=== PATIENT | female | born 1985 | race Caucasian/White ===

== ENCOUNTER 2019-06-18 07:59 | Day surgery (SDC) | payer OTHER ==
[~2019-06-18] VITALS: Ht 160 cm; Wt 77.8 kg
[~2019-06-18 07:59] MED LIST: ABAT250V; ABILIFY5 MG PO; ACET325 PO; ALBU90OI INH; ALBU90OI6 INH; ALBU90OI61 INH; AZIT250 PO; Augmentin 875-1 EACH PO; BENZ100A PO; BUDE6HFA INH; CEFU500 PO; CIPR500 PO; CLARITIN10 M1 PO; CLARITIN5 MG PO; Cleocin HCl150 MG PO; Cleocin HCl300 MG PO; DAYQUIL PO; DIPATR PO; DIPH50 PO; DOXY100 PO; FLUSAL2505 INH; Fluoxetine HCl10 MG PO; HYDACE5 PO; HYDCHLSU PO; IBUP800 PO; INTE30I SC; Keflex500 MG PO; LAMO100 PO; LORA10ER PO; MECL12.5 PO; METPRE4DP PO; MONT10T PO; MULVITMINE PO; Naprosyn500 MG PO; Norco 5-325 Ta1 EACH PO; PENVK250 PO; PRED20 PO; PROCODE120 PO; PROM25 PO; RXALBOI INH; RXCODGUASY PO; Ultram50 MG PO; Veetids 500500 MG PO; Ventolin Soln3 ML INH; Ventolin/Prove6.7 GM; ZOLP10 PO; Zithromax250 MG PO; Zofran4 MG PO
--- NOTE | 2019-06-18 09:23 | NUR ---
06/18/19 0923 Rosemarie Howard PT FOUGHT AND KEPT WAKING UP DURING THE PROCEDURE DESPITE 300MG IV PROPOFOL AND 3MG IV VERSED. PT NEEDS TO BE MAC NEXT TIME DUE TO DIFFICULTY WITH SEDATING PER MD ESPINAL.
== END 2019-06-18 09:44 | disposition home or self-care (01) ==
LOC: ORSCSDS 07:59
PROVIDERS: Student in an Organized Health Care Education/Training Program
PROC: 0DB68ZX Excision of Stomach, Via Natural or Artificial Opening Endoscopic, Diagnostic (ICD-10-PCS; principal; 2019-06-18 09:00)
PROC: 0DB98ZX Excision of Duodenum, Via Natural or Artificial Opening Endoscopic, Diagnostic (ICD-10-PCS; principal; 2019-06-18 09:00)
DX: K21.9 Gastro-esophageal reflux disease without esophagitis (principal); R13.10 Dysphagia, unspecified; K29.70 Gastritis, unspecified, without bleeding; K22.2 Esophageal obstruction; Z87.891 Personal history of nicotine dependence; J45.909 Unspecified asthma, uncomplicated; Z79.899 Other long term (current) drug therapy
CPT/HCPCS: 88305; 88342; J2250; J2704; J7120

== ENCOUNTER → 2019-08-13 | Outpatient (CLI) | payer OTHER | END | disposition home or self-care (01) | LOC: LAB 15:20 → LAB SHORT 15:20 | DX: N39.0 Urinary tract infection, site not specified (principal) | CPT/HCPCS: 87077; 87086; 87186 ==

== ENCOUNTER 2019-11-19 08:11 | Day surgery (SDC) | payer OTHER ==
[~2019-11-19] VITALS: Ht 160 cm; Wt 77.9 kg
[~2019-11-19 08:11] MED LIST changes: +ABILIFY MYCITE5 M1 PO; +ALBU3IS INH; +BENADRYL25 MG; +FLUO10 PO; +Loratadine10 MG PO; +MOTRIN IB200 MG PO; +OMEP20ER PO; +ONDA4ODT MM
== END 2019-11-19 10:05 | disposition home or self-care (01) ==
LOC: ORSCSDS 08:11
PROVIDERS: Student in an Organized Health Care Education/Training Program
PROC: 0DB68ZX Excision of Stomach, Via Natural or Artificial Opening Endoscopic, Diagnostic (ICD-10-PCS; principal; 2019-11-19 09:15)
PROC: 0DB48ZX Excision of Esophagogastric Junction, Via Natural or Artificial Opening Endoscopic, Diagnostic (ICD-10-PCS; principal; 2019-11-19 09:15)
DX: K21.9 Gastro-esophageal reflux disease without esophagitis (principal); R13.10 Dysphagia, unspecified; K29.70 Gastritis, unspecified, without bleeding; K22.2 Esophageal obstruction; J45.909 Unspecified asthma, uncomplicated; Z79.899 Other long term (current) drug therapy
CPT/HCPCS: 88305; 88342; J2704; J7120

== ENCOUNTER → 2021-05-17 | Outpatient (CLI) | payer OTHER | END | disposition home or self-care (01) | LOC: LAB SHORT 15:20 → LAB 15:20 | DX: L02.01 Cutaneous abscess of face (principal) | CPT/HCPCS: 87070; 87075; 87077; 87186; 87205 ==

== ENCOUNTER 2022-06-07 18:42 | Emergency (ER) | payer OTHER ==
[~2022-06-07] VITALS: Ht 160 cm; Wt 81.7 kg
[2022-06-07 19:09] LABS: BASOPHILS ABSOLUTE AUTO 0.13 K/mm3 (0.00-0.23); BASOPHILS PERCENT AUTO 1 % (0-2); EOSINOPHILS ABSOLUTE AUTO 0.56 K/mm3 (0.00-0.68); EOSINOPHILS PERCENT AUTO 3 % (0-6); Hematocrit 35.1 % (33.0-51.0); Hemoglobin 13.1 g/dL (11.5-16.0); IMMATURE GRAN ABSOLUTE AUTO 0.84 K/mm3 (0.00-0.10); IMMATURE GRAN PERCENT AUTO 4 % (0-1); LYMPHOCYTES ABSOLUTE AUTO 3.42 K/mm3 (0.84-5.20); LYMPHOCYTES PERCENT AUTO 18 % (21-46); MONOCYTES PERCENT AUTO 8 % (4-13); Mean Corpuscular HGB 30.8 pg (26.0-34.0); Mean Corpuscular HGB Conc 37.3 g/dL (31.5-36.5); Mean Corpuscular Volume 82 fL (80-100); Mean Platelet Volume 10.3 fL (9.1-12.4); NEUTROPHILS PERCENT AUTO 67 % (41-73); Platelet Count 362 K/mm3 (150-400); RDW Coefficient Variation 14.6 % (11.7-14.2); RDW Standard Deviation 43.8 fL (35.1-46.3); Red Blood Cell Count 4.26 M/mm3 (3.80-5.20); White Blood Cell Count 19.45 K/mm3 (4.00-11.30)
[2022-06-07 19:48] LABS: Influenza A, PCR NEGATIVE (NEGATIVE); Influenza B, PCR NEGATIVE (NEGATIVE); Resp Syncytial Virus, PCR NEGATIVE (NEGATIVE); SARS-Cov-2 (COVID-19) PCR, MMC NEGATIVE (NEGATIVE)
[2022-06-07 19:51] LABS: Albumin, Blood 2.9 g/dL (3.4-5.0); Albumin/Globulin Ratio 0.6 (0.8-1.8); Bilirubin, Total 1.1 mg/dL (0.1-1.0); Creatinine, Blood 0.29 mg/dL (0.40-1.00); Globulin, Blood 5.2 g/dL (2.2-4.0); Potassium, Blood 4.9 mmol/L (3.5-5.5); Total Protein, Blood 8.1 g/dL (6.4-8.2)
[2022-06-08] MEDS ORDERED: DOXY100 PO (02:12)
[2022-06-08] MEDS ORDERED: AMOCLA875 PO (02:12)
== END 2022-06-08 02:30 | disposition home or self-care (01) ==
LOC: ER 18:42
PROVIDERS: Student in an Organized Health Care Education/Training Program
DX: J18.9 Pneumonia, unspecified organism (principal); R00.0 Tachycardia, unspecified; K76.0 Fatty (change of) liver, not elsewhere classified; J47.9 Bronchiectasis, uncomplicated; J45.909 Unspecified asthma, uncomplicated; Z20.822 Contact with and (suspected) exposure to COVID-19; Z88.8 Allergy status to other drugs, medicaments and biological substances; Z88.1 Allergy status to other antibiotic agents; Z88.2 Allergy status to sulfonamides; Z79.899 Other long term (current) drug therapy; Z87.891 Personal history of nicotine dependence
CPT/HCPCS: 0241U; 36415; 71046; 71260; 80053; 83690; 84484; 85025; 93005; 93010; A9270; J1885; J2930; J7030; Q9967

== ENCOUNTER 2022-10-01 15:59 | Inpatient (IN) | payer OTHER ==
[~2022-10-01] VITALS: Ht 160 cm; Wt 94.2 kg
[~2022-10-01 15:59] MED LIST changes: +AMOCLA875 PO
[2022-10-01 17:03] LABS: BASOPHILS PERCENT AUTO 1 % (0-2); EOSINOPHILS ABSOLUTE AUTO 0.43 K/mm3 (0.00-0.68); EOSINOPHILS PERCENT AUTO 2 % (0-6); Hematocrit 39.1 % (33.0-51.0); Hemoglobin 14.2 g/dL (11.5-16.0); IMMATURE GRAN ABSOLUTE AUTO 0.19 K/mm3 (0.00-0.10); IMMATURE GRAN PERCENT AUTO 1 % (0-1); LYMPHOCYTES ABSOLUTE AUTO 2.05 K/mm3 (0.84-5.20); LYMPHOCYTES PERCENT AUTO 11 % (21-46); MONOCYTES ABSOLUTE AUTO 1.35 K/mm3 (0.16-1.47); MONOCYTES PERCENT AUTO 7 % (4-13); Mean Corpuscular HGB Conc 36.3 g/dL (31.5-36.5); Mean Corpuscular Volume 83 fL (80-100); Mean Platelet Volume 9.7 fL (9.1-12.4); NEUTROPHILS ABSOLUTE AUTO 14.26 K/mm3 (1.96-9.15); NEUTROPHILS PERCENT AUTO 78 % (41-73); Platelet Count 329 K/mm3 (150-400); RDW Coefficient Variation 15.4 % (11.7-14.2); RDW Standard Deviation 46.3 fL (35.1-46.3); Red Blood Cell Count 4.74 M/mm3 (3.80-5.20); White Blood Cell Count 18.38 K/mm3 (4.00-11.30)
[2022-10-01 18:35] LABS: Source, Urine Clean Catch
[2022-10-01 18:41] LABS: Appearance, Urine Bloody (Clear); Bilirubin, Urine Neg (Neg); Blood, Urine 5+ (Neg); Color, Urine Red (P-Yellow); Glucose Qualitative, Urine Neg (Neg); Ketones, Urine Neg (Neg); Leukocyte Esterase, Urine 2+ (Neg); Nitrite, Urine Pos (Neg); Protein, Urine 3+ (Neg); Urobilinogen, Urine 1+ (Normal)
[2022-10-01 19:10] LABS: Bacteria Mod /hpf; Granular Casts 0-2 /lpf (0); Hyaline Casts 0-2 /lpf (0-2); RBC Cast 0-2 /lpf (0); Red Blood Cells, Urine TNTC /hpf (0-2); Squamous Epithelial Cells Few /hpf (Few); White Blood Cells, Urine 25-50 /hpf (0-5)
[2022-10-01 19:15] LABS: Alanine Aminotransfer (ALT/SGP 41 U/L (12-78); Albumin, Blood 3.6 g/dL (3.4-5.0); Albumin/Globulin Ratio 0.8 (0.8-1.8); Alk Phos 57 U/L (50-136); Anion Gap 3 mmol/L (6-16); Aspartate Aminotrans (AST/SGOT 82 U/L (12-37); Bilirubin, Total 0.5 mg/dL (0.1-1.0); Blood Urea Nitrogen 10 mg/dL (8-24); Bun/Creatinine Ratio 14.1 (12.0-20.0); CO2, Blood 26 mmol/L (21-32); Calcium, Blood 8.6 mg/dL (8.5-10.1); Chloride, Blood 109 mmol/L (98-108); Creatinine, Blood 0.71 mg/dL (0.40-1.00); Globulin, Blood 4.8 g/dL (2.2-4.0); Glomerular Filtration Rate 113 (60-); Glucose, Blood 118 mg/dL (70-99); Potassium, Blood 5.2 mmol/L (3.5-5.5); Sodium, Blood 138 mmol/L (136-145); Total Protein, Blood 8.4 g/dL (6.4-8.2)
[2022-10-01 23:05] LABS: Lactate Dehydrogenase (Ld),Bld 837 U/L (100-240); Triglycerides 584 mg/dL (30-140)
[2022-10-02 00:57] LABS: BASOPHILS ABSOLUTE AUTO 0.08 K/mm3 (0.00-0.23); BASOPHILS PERCENT AUTO 1 % (0-2); EOSINOPHILS ABSOLUTE AUTO 0.05 K/mm3 (0.00-0.68); EOSINOPHILS PERCENT AUTO 0 % (0-6); Hematocrit 35.6 % (33.0-51.0); Hemoglobin 12.4 g/dL (11.5-16.0); IMMATURE GRAN ABSOLUTE AUTO 0.12 K/mm3 (0.00-0.10); IMMATURE GRAN PERCENT AUTO 1 % (0-1); LYMPHOCYTES ABSOLUTE AUTO 1.04 K/mm3 (0.84-5.20); LYMPHOCYTES PERCENT AUTO 6 % (21-46); MONOCYTES ABSOLUTE AUTO 1.27 K/mm3 (0.16-1.47); MONOCYTES PERCENT AUTO 7 % (4-13); Mean Corpuscular HGB 28.8 pg (26.0-34.0); Mean Corpuscular HGB Conc 34.8 g/dL (31.5-36.5); Mean Corpuscular Volume 83 fL (80-100); Mean Platelet Volume 10.3 fL (9.1-12.4); NEUTROPHILS ABSOLUTE AUTO 15.14 K/mm3 (1.96-9.15); NEUTROPHILS PERCENT AUTO 85 % (41-73); Platelet Count 252 K/mm3 (150-400); RDW Coefficient Variation 15.3 % (11.7-14.2); RDW Standard Deviation 46.1 fL (35.1-46.3); Red Blood Cell Count 4.31 M/mm3 (3.80-5.20)
--- NOTE | 2022-10-02 01:51 | NUR ---
ARRIVAL TO [facility] PT ARRIVED TO [facility] AT APPROXIMATELY 0020. PT TRANSFERED FROM [facility] TO HOSPITAL BED WITH SBA. PT A&Ox4, COMMUNICATES NEEDS APPROPRIATELY. ORIENTED PT TO CALL LIGHT/UNIT. PT ARRIVED ON 2L VIA NC, SpO2> 92% RA. WHEN PT FELL ASLEEP WHILE ON SpO2 MONIORING, PT DESATURATED TO 87%, PLACED PT ON 2L VEGA NC, SpO2> 92%. PT DENIES SOB. BP STABLE, SINUS TACH 100's, DENIES CP/PRESSURE. PT WITH NAUSEA AND ABDOMINAL PAIN AT ARRIVAL, MANAGED PER EMAR. BED IN LOWEST POSITION, CALL LIGHT IN REACH.
[2022-10-02 02:21] LABS: Albumin, Blood 3.2 g/dL (3.4-5.0); Albumin/Globulin Ratio 0.8 (0.8-1.8); Bilirubin, Total 0.6 mg/dL (0.1-1.0); Bun/Creatinine Ratio 16.1 (12.0-20.0); Calcium, Blood 7.3 mg/dL (8.5-10.1); Creatinine, Blood 0.68 mg/dL (0.40-1.00); Globulin, Blood 4.1 g/dL (2.2-4.0); Potassium, Blood 4.9 mmol/L (3.5-5.5); Total Protein, Blood 7.3 g/dL (6.4-8.2)
--- NOTE | 2022-10-02 05:56 | NUR ---
SHIFT SUMMARY PT A&Ox4, COMMUNICATES NEEDS APPROPRIATELY. VSS, SpO2> 92% RA, WHEN PT IS SLEEPING DESATS TO 80's, PLACED PT ON 2L VEGA NC, SpO2> 92%. PT DENIES SOB. BP STABLE, SINUS TACH 100's, DENIES CP/PRESSURE. PT WITH NAUSEA AND ABDOMINAL PAIN, MANAGED PER EMAR. PT CONTINENT OF URINE, SBA TO BATHROOM, NO BM THIS SHIFT. PT NPO. NO OTHER EVENTS, WILL REPORT TO ONCOMING RN.
[2022-10-02 12:24] LABS: Bun/Creatinine Ratio 14.2 (12.0-20.0); Calcium, Blood 6.1 mg/dL (8.5-10.1); Creatinine, Blood 0.84 mg/dL (0.40-1.00); Potassium, Blood 3.7 mmol/L (3.5-5.5)
[2022-10-02 14:21] LABS: Magnesium, Blood 1.8 mg/dL (1.6-2.4); Phosphorus, Blood 1.9 mg/dL (2.5-4.9)
[2022-10-02 14:31] LABS: Free Thyroxine 0.97 ng/dL (0.70-1.60); Thyroid Stimulating Hormone 0.299 uIU/mL (0.360-4.800); Triiodothyronine, Free 2.91 pg/mL (2.18-3.98)
[2022-10-02 14:39] LABS: Triglycerides 1515 mg/dL (30-140)
--- NOTE | 2022-10-02 15:07 | NUR ---
Upon receiving a spiritual care referral, I attempted to visit twice today. She was either sleeping or not in a state to talk. I will continue to remain available to patient and family.
--- NOTE | 2022-10-02 15:19 | NUR ---
TRANSFER NOTE PATIENT LETHARGIC THROUGH AM BUT ABLE TO RESPOND TO VERBAL STIMULI AND FOLLOW DIRECTIONS. TACHY 120-130, ELEVATED TEMP MANAGED WITH TYLENOL AND ICE PACKS, BP STABLE, O2 STABLE ON 2L VIA NC. SEVERE LEFT SIDE ABD PAIN MANAGED WITH PRN DILAUDID. NAUSEA WITH EMESIS ONCE, MEDICATED WITH ZOPHRAN. SBA UP TO BSC, LOW URINE OUTPUT 300 ML SINCE 0600. NPO EXCEPT FOR SIPS OF WATER WITH PILLS. LR RUNNING AT 150/HR. NUMEROUS LABS CHECKED BY JOSE ALBERTO CABRAL AND SANDRA, CONCERNED WITH RISING TRG, DROPPING CALCIUM, AND REPORT FROM LAB THAT LACTIC ACID COULD NOT BE RUN DUE TO LIPEMIC NATURE OF BLOOD SAMPLE. DR CABRAL PLACED ORDER FOR TRANSFER TO ICU FOR CLOSE MANAGEMENT BY CLAIMS ASSOCIATE DR ROBERTS AND FOR POSSIBLE START IF INSULIN GTT. REPORT CALLED TO JUAN JOSE PRICE, CHEMISTRY TECHNICAL OFFICER AT 1500. PATIENT TRANSPORTED TO ICU ROOM 11 ON BED AT 1515.
[2022-10-02 17:49] LABS: Source, Urine Foley catheter
[2022-10-02 18:04] LABS: Appearance, Urine Clear (Clear); Bilirubin, Urine Neg (Neg); Blood, Urine 2+ (Neg); Color, Urine Amber (P-Yellow); Glucose Qualitative, Urine Neg (Neg); Ketones, Urine 2+ (Neg); Leukocyte Esterase, Urine Neg (Neg); Nitrite, Urine Neg (Neg); Protein, Urine 2+ (Neg); Specific Gravity, Urine 1.025 (1.003-1.022); Urobilinogen, Urine NORM (Normal)
[2022-10-02 18:19] LABS: White Blood Cells, Urine 0-2 /hpf (0-5)
[2022-10-02 18:21] LABS: Bacteria Few /hpf; Mucus Light (0-Heavy); Squamous Epithelial Cells Few /hpf (Few)
[2022-10-02 18:22] LABS: Amorphous Light (0-Heavy)
--- NOTE | 2022-10-02 18:36 | NUR ---
TRANSFER TO ICU / SHIFT SUMMARY: REPORT RECEIVED FROM MAYCO Sutherland RN IN PCU. THIS PT ARRIVED TO ICU-11 AT APPROX 1510. SHE HAS BEEN TRANSFERRED R/T WORSENING PANCREATITIS & INCREASING TRIGLYCERIDES W/ ELECTROLYTE IMBALANCE. SHE WILL BE PLACED ON CONTINUOUS D10W & INSULIN INFUSIONS. ON ARRIVAL TO ICU, THE PT IS A&O TO ALL, GRIMACING W/ CARE MEASURES/ ADLs. SHE STS THAT PAIN IS RADIATING FROM EPIGASTRIC REGION DOWN TO LEFT FLANK & INTO HER UPPER BACK, IMPROVED AT REST. LS ARE WHEEZING & PT IS ON 2L NC W/ O2 SATS > 92%. MONITOR SHOWS ST W/ HR 100-120s, BP STABLE. PT NPO AT THIS TIME R/T PANCREATITIS DX, OKAY'd PER DR ROBERTS FOR SIPS OF WATER LONG NO NAUSEA OR VOMITING DEVELOPS. RISHABH LOERA PLACED THIS EVENING FOR STRICT I&O MONITORING PER DR ROBERTS. SKIN CONDITION OVERALL INTACT, Q2H REPOSITIONING TO MAINTAIN SKIN INTEGRITY. WILL CONTINUE TO MONITOR & REPORT OFF TO ONCOMING RN.
--- NOTE | 2022-10-02 20:26 | NUR ---
DOCTOR ARMANDO NOTIFIED OF GLUCOSE LEVEL DROPPING AND CALCIUM LEVEL. KEEP INSULIN DRIP AT 5 UNITS/HR AND D10 150 CC/HR. GIVE D50 NEEDED FOR GLUCOSE LESS THAN 80
[2022-10-02 20:30] LABS: Hematocrit 39.5 % (33.0-51.0); Hemoglobin 12.3 g/dL (11.5-16.0)
[2022-10-02 20:46] LABS: Magnesium, Blood 1.9 mg/dL (1.6-2.4); Phosphorus, Blood 2.4 mg/dL (2.5-4.9)
[2022-10-02 22:45] LABS: Anion Gap 10 mmol/L (6-16); Blood Urea Nitrogen 12 mg/dL (8-24); Bun/Creatinine Ratio 15.8 (12.0-20.0); CO2, Blood 19 mmol/L (21-32); Calcium, Blood 7.6 mg/dL (8.5-10.1); Chloride, Blood 110 mmol/L (98-108); Creatinine, Blood 0.76 mg/dL (0.40-1.00); Glomerular Filtration Rate 104 (60-); Glucose, Blood 81 mg/dL (70-99); Potassium, Blood 3.6 mmol/L (3.5-5.5); Sodium, Blood 139 mmol/L (136-145); Triglycerides 905 mg/dL (30-140)
--- NOTE | 2022-10-02 22:51 | NUR ---
DOCTOR ARMANDO NOTIFIED OF LABS PLAN TO CONTINUE WITH CURRENT TREATMENT.
[2022-10-03 05:02] LABS: BASOPHILS ABSOLUTE AUTO 0.06 K/mm3 (0.00-0.23); BASOPHILS PERCENT AUTO 0 % (0-2); EOSINOPHILS ABSOLUTE AUTO 0.02 K/mm3 (0.00-0.68); EOSINOPHILS PERCENT AUTO 0 % (0-6); Hematocrit 33.5 % (33.0-51.0); Hemoglobin 10.9 g/dL (11.5-16.0); IMMATURE GRAN ABSOLUTE AUTO 0.14 K/mm3 (0.00-0.10); IMMATURE GRAN PERCENT AUTO 1 % (0-1); LYMPHOCYTES ABSOLUTE AUTO 1.31 K/mm3 (0.84-5.20); LYMPHOCYTES PERCENT AUTO 7 % (21-46); MONOCYTES ABSOLUTE AUTO 1.13 K/mm3 (0.16-1.47); MONOCYTES PERCENT AUTO 6 % (4-13); Mean Corpuscular HGB 27.3 pg (26.0-34.0); Mean Corpuscular HGB Conc 32.5 g/dL (31.5-36.5); Mean Corpuscular Volume 84 fL (80-100); Mean Platelet Volume 10.6 fL (9.1-12.4); NEUTROPHILS ABSOLUTE AUTO 15.47 K/mm3 (1.96-9.15); NEUTROPHILS PERCENT AUTO 85 % (41-73); Platelet Count 211 K/mm3 (150-400); RDW Coefficient Variation 15.4 % (11.7-14.2); RDW Standard Deviation 47.2 fL (35.1-46.3); Red Blood Cell Count 3.99 M/mm3 (3.80-5.20); White Blood Cell Count 18.13 K/mm3 (4.00-11.30)
[2022-10-03 05:28] LABS: Alanine Aminotransfer (ALT/SGP 18 U/L (12-78); Albumin, Blood 2.2 g/dL (3.4-5.0); Albumin/Globulin Ratio 0.6 (0.8-1.8); Alk Phos 41 U/L (50-136); Anion Gap 4 mmol/L (6-16); Aspartate Aminotrans (AST/SGOT 20 U/L (12-37); Bilirubin, Total 0.8 mg/dL (0.1-1.0); Blood Urea Nitrogen 11 mg/dL (8-24); Bun/Creatinine Ratio 16.4 (12.0-20.0); CO2, Blood 25 mmol/L (21-32); Calcium, Blood 7.2 mg/dL (8.5-10.1); Chloride, Blood 105 mmol/L (98-108); Creatinine, Blood 0.67 mg/dL (0.40-1.00); Globulin, Blood 3.7 g/dL (2.2-4.0); Glomerular Filtration Rate 116 (60-); Glucose, Blood 126 mg/dL (70-99); Potassium, Blood 3.4 mmol/L (3.5-5.5); Sodium, Blood 134 mmol/L (136-145); Total Protein, Blood 5.9 g/dL (6.4-8.2); Triglycerides 714 mg/dL (30-140)
--- NOTE | 2022-10-03 06:09 | NUR ---
SUMMARY PATIENT SLEEPING OFF AND ON T/O NIGHT. CONTINUES TO HAVE ABD CRAMPS AND PAIN 12/15 MEDICATED WITH DILAUDID IV. GENERALIZED EDEMA CONTINUES. LOERA DRAINING WICHO URINE SEE I&O. DOCTOR ARMANDO NOTIFIED OF AM LABS, CONTINUE SAME TREATMENT WITH INSULIN 5 UNITS/HR AND D10 @ 150/HR.
--- NOTE | 2022-10-03 13:23 | NUR ---
"Spiritual Care Attempted | Nurse referral. Pt. had been moved to ICU, and displayed evidence of being groggy with sedation. Pts. mother and Pts. daughter are present. Cordial introductions were given. Pt. and family verbalize gratitude for the spiritual care visit, but decline spiritual care servicest this time."
[2022-10-03 14:39] LABS: Bun/Creatinine Ratio 10.9 (12.0-20.0); Calcium, Blood 7.7 mg/dL (8.5-10.1); Creatinine, Blood 0.64 mg/dL (0.40-1.00); Potassium, Blood 3.3 mmol/L (3.5-5.5)
--- NOTE | 2022-10-03 17:58 | NUR ---
SHIFT SUMMARY NO ACUTE CHANGES THIS SHIFT. PT IS ALERT AND ORIENTED WHEN AWAKE. PT RESTING QUIETLY MOST OF THIS SHIFT. WHEN AWAKE PT COMPLAINS OF PAIN TO BACK AND ABD WITH MOVEMENT. PT MED WITH DILAUDID PER EMAR. PT ABLE TO TAKE SMALL SIPS OF WATER. ABD REMAINS DISTENDED. D10 INFUSING AT 150 ML/HR, INSULIN GTT 5 UNITS/HR, AND NS TKO. LOERA REMAINS IN PLACE WITH GOOD URINE OUTPUT NOTED THIS SHIFT. PT ABLE TO ASSIST WITH REPOSITIONING. VITAL SIGNS STABLE. PT ON 2L O2 NC. WILL CONTINUE TO MONITOR AND REPORT OFF TO ONCOMING RN.
[2022-10-04 05:09] LABS: BASOPHILS ABSOLUTE AUTO 0.06 K/mm3 (0.00-0.23); BASOPHILS PERCENT AUTO 0 % (0-2); EOSINOPHILS ABSOLUTE AUTO 0.02 K/mm3 (0.00-0.68); EOSINOPHILS PERCENT AUTO 0 % (0-6); Hematocrit 32.6 % (33.0-51.0); Hemoglobin 10.2 g/dL (11.5-16.0); IMMATURE GRAN ABSOLUTE AUTO 0.24 K/mm3 (0.00-0.10); IMMATURE GRAN PERCENT AUTO 1 % (0-1); LYMPHOCYTES PERCENT AUTO 8 % (21-46); MONOCYTES ABSOLUTE AUTO 1.28 K/mm3 (0.16-1.47); MONOCYTES PERCENT AUTO 6 % (4-13); Mean Corpuscular HGB 26.4 pg (26.0-34.0); Mean Corpuscular HGB Conc 31.3 g/dL (31.5-36.5); Mean Corpuscular Volume 84 fL (80-100); Mean Platelet Volume 10.5 fL (9.1-12.4); NEUTROPHILS ABSOLUTE AUTO 16.85 K/mm3 (1.96-9.15); NEUTROPHILS PERCENT AUTO 85 % (41-73); Platelet Count 211 K/mm3 (150-400); RDW Coefficient Variation 15.3 % (11.7-14.2); RDW Standard Deviation 47.1 fL (35.1-46.3); Red Blood Cell Count 3.87 M/mm3 (3.80-5.20); White Blood Cell Count 19.95 K/mm3 (4.00-11.30)
[2022-10-04 05:45] LABS: Anion Gap 4 mmol/L (6-16); Blood Urea Nitrogen 5 mg/dL (8-24); Bun/Creatinine Ratio 8.5 (12.0-20.0); CO2, Blood 26 mmol/L (21-32); Calcium, Blood 7.6 mg/dL (8.5-10.1); Chloride, Blood 104 mmol/L (98-108); Creatinine, Blood 0.59 mg/dL (0.40-1.00); Glomerular Filtration Rate 120 (60-); Glucose, Blood 153 mg/dL (70-99); Potassium, Blood 3.7 mmol/L (3.5-5.5); Sodium, Blood 134 mmol/L (136-145); Triglycerides 445 mg/dL (30-140)
--- NOTE | 2022-10-04 06:13 | NUR ---
SHIFT SUMMARY: NO ACUTE CHANGES OVERNIGHT. PT REMAINS A&O X 4, WITHDRAWN BUT PLEASANT AND COOPERATIVE WITH CARE. C/O OF INTENSE PAIN IN LUQ THAT RADIATES TO THE BACK THAT IS 7/10; PT MEDICATED PER EMAR AND REPOSITIONED TOLERATED. PT CURENTLY ST ON MONITOR WITH HR 110'S AND SBP 100'S. PT HAS NO C/O CHEST PAIN. PT CURRENTLY ON NC @ 2LPM; LUNG SOUNDS ARE CLEAR WITH EXPIRATORY WHEEZES, BUT PT NOT C/O SOB AT THIS TIME. BOWEL SOUNDS PRESENT IN ALL QUADRANTS; ABD MODERATELY DISTENDED AND EXTREMELY TENDER TO TOUCH. PT HAS LOERA DRAINING TO GRAVITY WITH YELLOW, CLEAR URINE; 2400 ML OUTPUT. PT REMAINS ON INSULIN GTT @ 5 UNITS/HR AND D10 GTT @ 150 MLS/HR; CBG READINGS AVERAGING 120-140. CALL LIGHT IN REACH, BED LOWERED, WILL CONTINUE TO MONITOR UNTIL ONCOMING RN ARRIVES.
--- NOTE | 2022-10-04 18:30 | NUR ---
TRANSFER/ END OF SHIFT NOTE. PT WAS TRANSFERED FROM THE ICU INTO PCU3. PT WAS ABLE TO SIT AT THE EDGE OF THE BED HAD HAVE A MODIFIED BED BATH AT THAT TIME. PT TOLERATED MOVEMENT FAIR, CAUSING SOME NAUSEA AND INCREASE HR TO 130s. LOERA WAS REMOVED AT 1630. MD WAS PHONED TO CLARIFY CBG ORDERS TO BE DC'D. PT WAS ALSO NOTIFIED OF HR INCREASE WITH MOVEMENT. AT REST PT 110-120. ALL OTHER VITALS STABLE. PT HAS BEEN MEDICATED FOR PAIN AND NAUSEA ONCE SINCE TRANSFER. PTS MOM WAS UPDATED VIA PHONE. PT WAS ORIENTED TO ROOM AND CALL LIGHT SYSTEM. PT IS ABLE TO MAKE NEEDS KNOWN, CALL LIGHT IS WITHIN REACH.
[2022-10-05 03:32] LABS: BASOPHILS ABSOLUTE AUTO 0.04 K/mm3 (0.00-0.23); BASOPHILS PERCENT AUTO 0 % (0-2); EOSINOPHILS ABSOLUTE AUTO 0.03 K/mm3 (0.00-0.68); EOSINOPHILS PERCENT AUTO 0 % (0-6); Hematocrit 30.7 % (33.0-51.0); Hemoglobin 9.9 g/dL (11.5-16.0); IMMATURE GRAN ABSOLUTE AUTO 0.23 K/mm3 (0.00-0.10); IMMATURE GRAN PERCENT AUTO 1 % (0-1); LYMPHOCYTES ABSOLUTE AUTO 1.19 K/mm3 (0.84-5.20); LYMPHOCYTES PERCENT AUTO 7 % (21-46); MONOCYTES ABSOLUTE AUTO 1.35 K/mm3 (0.16-1.47); MONOCYTES PERCENT AUTO 8 % (4-13); Mean Corpuscular HGB 27.1 pg (26.0-34.0); Mean Corpuscular HGB Conc 32.2 g/dL (31.5-36.5); Mean Corpuscular Volume 84 fL (80-100); Mean Platelet Volume 9.9 fL (9.1-12.4); NEUTROPHILS ABSOLUTE AUTO 14.37 K/mm3 (1.96-9.15); NEUTROPHILS PERCENT AUTO 84 % (41-73); Platelet Count 227 K/mm3 (150-400); RDW Coefficient Variation 15.4 % (11.7-14.2); RDW Standard Deviation 47.3 fL (35.1-46.3); Red Blood Cell Count 3.65 M/mm3 (3.80-5.20); White Blood Cell Count 17.21 K/mm3 (4.00-11.30)
[2022-10-05 03:51] LABS: Anion Gap 6 mmol/L (6-16); Blood Urea Nitrogen 9 mg/dL (8-24); Bun/Creatinine Ratio 16.3 (12.0-20.0); CO2, Blood 26 mmol/L (21-32); Calcium, Blood 8.2 mg/dL (8.5-10.1); Chloride, Blood 105 mmol/L (98-108); Creatinine, Blood 0.55 mg/dL (0.40-1.00); Glomerular Filtration Rate 122 (60-); Glucose, Blood 131 mg/dL (70-99); Potassium, Blood 3.7 mmol/L (3.5-5.5); Sodium, Blood 137 mmol/L (136-145); Triglycerides 522 mg/dL (30-140)
--- NOTE | 2022-10-05 04:15 | NUR ---
SHIFT SUMMARY PT ALERT AND ORIENTED, ABLE TO FOLLOW COMMANDS AND MAKE NEEDS KNOWN. BP STABLE, HR ST 110-120'S, SATS >96 ON 2L NC FOR COMFORT. PT WITH TEMP OF 101.1 AT START OF SHIFT, MEDICATED PER EMAR WITH TYLENOL, CURRENT TEMP 97.9. PT CONTINUING TO RATE 7/10 PAIN RADIATING FROM EPIGASTRIC AREA DOWN TO LEFT FLANK. MEDICATED W/ DILAUDID PER EMAR WITH RELIEF. NO COMPLAINTS OF N/V THROUGHOUT THE NIGHT. PT WITH MINIMAL PO INTAKE, REMAINS ON FULL LIQUID DIET. PT UP TO BEDSIDE COMMODE VIA SBA. APPROX 600 ML OF URINARY OUTPUT THIS SHIFT. ONE BM. TRIGLYCERIDES INCREASED TO 522 THIS AM. BED IN LOW, CALL LIGHT IN REACH WILL REPORT TO ONCOMING RN.
--- NOTE | 2022-10-05 15:16 | NUR ---
END OF SHIFT: NERUO: PATIENT IS ALERT AND ORIENTED, COOPERATIVE WITH CARE. PLEASANT. ANXIOUS WITH PAIN. ABLE TO MAKE NEEDS KNOWN. PAIN IS MEDICATED APPROXIMATELY Q2-3 .5 DILAUDED AND TYLENOL Q6 AND PATIENT ENDORSES ACCEPTABLE PAIN MANAGEMENT. CARDIAC: TELE DC'D PATIENT HAS BEEN ST, DENIES CHEST PAIN PRESSURE OR SOB. DOES ENDORSE HEARTBURN PROVIDER INFORMED. NO SIGNS OF ACUTE CARDIAC DISTRESS. PULM: PATIENT STARTED INCENTIVE SPIROMETRY AND FLUTTER, PER RT. PATIETN ON 2L VIA NC FOR COMFORT, SATURATING WELL >95%. NO SIGNS OF ACUTE DISTRESS. GI/: PATIENT NEEDS POTENTIAL STRAIGHT CATHETERIZATION FOR UA CULTURE IF INDICATED. SPOKE WITH PROVIDER FOR OBSERVED CLEAN CATCH AWAITING CALL BACK. PATIENT HAS MODERATE TO SEVERE BLOATING, THAT IS NOT PATIENTS NORM. PATIENT ENDORSED SEVERE INCREASE TO PAIN WITH EATING. DIETARY TO START TPN. LOOSE STOOL MULTIPLE. URINE IS CLEAR YELLOW WITH NO INDICITIVE SIGNS OF INFECTIONS FROM INSPECTION. WILL AWAIT PROVIDER CALL BEFORE COLLECTION Q6 CBG'S DUE TO POOR INTAKE AND STARTING OF IV NUTRITION. NO FURTHER CONCERNS FROM THIS RN AT THIS TIME WILL CONTINUE TO MONITOR UNTIL SHIFT CHANGE.
[2022-10-05 18:47] LABS: Source, Urine Clean Catch
[2022-10-05 18:57] LABS: Appearance, Urine Clear (Clear); Bilirubin, Urine Neg (Neg); Blood, Urine 3+ (Neg); Color, Urine Yellow (P-Yellow); Glucose Qualitative, Urine Neg (Neg); Ketones, Urine Neg (Neg); Leukocyte Esterase, Urine Neg (Neg); Nitrite, Urine Neg (Neg); Protein, Urine 1+ (Neg); Specific Gravity, Urine 1.015 (1.003-1.022); Urobilinogen, Urine NORM (Normal)
[2022-10-05 19:16] LABS: Bacteria Rare /hpf; Squamous Epithelial Cells Few /hpf (Few); White Blood Cells, Urine 0-2 /hpf (0-5)
[2022-10-06 05:48] LABS: Alanine Aminotransfer (ALT/SGP 15 U/L (12-78); Albumin, Blood 2.3 g/dL (3.4-5.0); Albumin/Globulin Ratio 0.5 (0.8-1.8); Alk Phos 68 U/L (50-136); Anion Gap 5 mmol/L (6-16); Aspartate Aminotrans (AST/SGOT 15 U/L (12-37); Bilirubin, Total 0.6 mg/dL (0.1-1.0); Blood Urea Nitrogen 14 mg/dL (8-24); Bun/Creatinine Ratio 25.1 (12.0-20.0); CO2, Blood 29 mmol/L (21-32); Calcium, Blood 8.6 mg/dL (8.5-10.1); Chloride, Blood 100 mmol/L (98-108); Creatinine, Blood 0.56 mg/dL (0.40-1.00); Globulin, Blood 4.7 g/dL (2.2-4.0); Glomerular Filtration Rate 121 (60-); Glucose, Blood 126 mg/dL (70-99); Magnesium, Blood 2.2 mg/dL (1.6-2.4); Phosphorus, Blood 3.6 mg/dL (2.5-4.9); Potassium, Blood 3.5 mmol/L (3.5-5.5); Sodium, Blood 134 mmol/L (136-145); Triglycerides 609 mg/dL (30-140)
--- NOTE | 2022-10-06 06:44 | NUR ---
TRANSPLANTER SUMMARY ASSUMED CARE OF THE PT AT 1900. SHE IS ALERT AND ORIENTED X4, COOPERATIVE. PT REQUIRED MULTIPLE DOSES OF PAIN MEDICATION. HER PAIN WORSENED WITH MOVEMENT WHEN HAVING TO GET UP TO BSC TO URINATE. SHE DID REQUIRE ONE DOSE OF PHENERGAN BUT HAS NOT BEEN NAUSEOUS SINCE. PT REPORTS DECREASING EFFECTIVENESS OF DILAUDID OVERNIGHT. VSS. NO ACUTE EVENTS. ON 1L BY NC DURING SLEEP DUE TO PAIN MEDICATION. PPN INFUSING.
--- NOTE | 2022-10-06 07:47 | NUR ---
ASSUMPTION OF CARE: ONLY CHNAGES FROM YESTERDAY, ARE: PATIENT HAVING INCREASED PAIN LEVEL WITH CURRENT MEDICATON REGIMENT. PATIENT HAVING INCREASED RR. LUNGS SOUNDS ARE WORSE THAN PREVIOUSLY, ON THE RLL. PPN RUNNING AT GOAL CONTINUING TO HOLD FOOD AT THIS TIME PATIENT STILL DENYING CHEST PAIN PRESSURE OR SOB AT REST. DOES HAVE SOB WITH EXERTION 2L VIA NC FOR COMFORT, SATURATION >95%. INCREASED BLOATING, PAIN IS STILL RUQ THROUGH TO THE BACK. WILL CONTINUE TO MONITOR FOR FURTHER CHANGES.
--- NOTE | 2022-10-06 14:32 | NUR ---
END OF SHIFT SUMMARY: NEURO: PATIENT IS ALERT AND ORIENTED X 4, PATIENT HAS BEEN VERY PLEASANT ESPECIALLY WITH HOW MUCH PAIN PATIENT IS IN. MAINLY CONTROLLED, WAS ABLE TO DROP BACK DOWN TO .5 MG INSTEAD OF 1MG. CARDIAC: PATIENT IS ST TO SR LOWEST SEEN BY THIS MUMPS DEVELOPER UPPER 90'S TO 120'S DEPENDING ON PAIN AND ANXIETY DUE TO PAIN. PULM: LUNGS SOUNDS HAVE IMPROVED MINIMALLY DURING THE DAY EDUCATED ON 90 SITTING AND REPOSITIONG, INCENTIVE SPIROMETRY AND FLUTTER, WHICH SHE HAS IMPROVED ON USING PAIN MANAGEMENT HAS BEEN IMPROVED. GI/: PATIENT HAD INCREASING TRIGLYCERIDES, PPN STOPPED PER PROVIDER. INFORMED PROVIDER OF NO GI PROPHYLAXIS, SHE ENDORSED TO PLACE ORDERS AFTER CHART REVIEW. URINALYSIS WITH SOME RARE BACTERIA, 2-5 RBC'S, 3+ BLOOD. PATIENT DENIES FREQUENCY OR URGENCY, DENIES BURING STINGING PRESSURE THAT IS NOT THE PAIN OF HER LUQ. PATIENT ORAL INTAKE POOR WILL MONITOR. NO CONCERNS THAT HAVE NOT BEEN ADDRESSED OR NOT RELAYED TO PROVIDER, WILL CONTINUE TO MONITOR UNTIL SHIFT CHANGE.
[2022-10-07 06:12] LABS: Anion Gap 5 mmol/L (6-16); Blood Urea Nitrogen 13 mg/dL (8-24); Bun/Creatinine Ratio 26.7 (12.0-20.0); CO2, Blood 28 mmol/L (21-32); Calcium, Blood 8.4 mg/dL (8.5-10.1); Chloride, Blood 101 mmol/L (98-108); Creatinine, Blood 0.49 mg/dL (0.40-1.00); Glomerular Filtration Rate 125 (60-); Glucose, Blood 101 mg/dL (70-99); Magnesium, Blood 2.4 mg/dL (1.6-2.4); Phosphorus, Blood 3.3 mg/dL (2.5-4.9); Potassium, Blood 3.8 mmol/L (3.5-5.5); Sodium, Blood 134 mmol/L (136-145); Triglycerides 416 mg/dL (30-140)
--- NOTE | 2022-10-07 06:39 | NUR ---
WELDING MACHINE OPERATOR FRICTION SUMMARY ASSUMED CARE OF THE PT AT 1900. SHE IS ALERT AND ORIENTED X4, COOPERATIVE WITH CARE. PT CONTINUES TO HAVE UNCONTROLLABLE PAIN EVERY FEW HOURS. GIVEN 1 MG OF DILAUDID PER MAR. PT HAD AN EPISODE OF COUGHING THIS MORNING THAT WORSENED HER PAIN. HAD PREVIOUSLY BEEN ON 1L BY DC AND TRIALED WITHOUT O2. PT SATURATION >92% WHEN RESTING BUT SHE BEGAN TO DESAT TO MID 80S AFTER COUGHING AND HYPERVENTILATING FROM PAIN. PLACED BACK ON 1L BY DC. PT TACHYCARDIC DURING TIMES OF PAIN. BP STABLE. INFUSING NS AT 75/HR. PT STILL UNABLE TO EAT/DRINK ANYTHING OTHER THAN WATER. NO BM FOR TWO DAYS. PT STATES SHE IS NOT PASSING GAS. PAIN THE LEFT OUTER ABDOMEN WITH "SWELLING" NOT IMPROVING.
--- NOTE | 2022-10-07 18:27 | NUR ---
END OF SHIFT: PATIENT HAS BEEN ALERT AND ORIENTED, PLEASANT. COOPERATIVE WITH CARE, IS PAINFUL MOST OF THE TIME, TRAMADOL ADDED. STILL ST BUT HAS BEEN BELOW 100 AT TIMES, DENIES CHEST PAIN OR PRESSURE. 1-2L VIA NC FOR O2 SUPPORT WHEN ANXIOUS, IMPROVED BREATH SOUNDS PATIENT HAS BEEN ABLE TO TOLERATE 2/3 OF CLEAR ENSURE. SHOWER TODAY. STILL DENIES DYSURIA OR FREQUENCY. WILL CONTINUE TO MONITOR UNTIL SHIFT CHANGE. PATIENT HAS NO QUESTIONS OR CONCERNS. OVERALL STATUS IMPROVING COULD BE MEDICAL STATUS. NO CONCERNS FROM THIS METAL SPRAYER PRODUCTION.
[2022-10-08 06:09] LABS: Albumin, Blood 2.2 g/dL (3.4-5.0); Anion Gap 6 mmol/L (6-16); Blood Urea Nitrogen 13 mg/dL (8-24); Bun/Creatinine Ratio 25.3 (12.0-20.0); CO2, Blood 26 mmol/L (21-32); Calcium, Blood 8.2 mg/dL (8.5-10.1); Chloride, Blood 106 mmol/L (98-108); Creatinine, Blood 0.51 mg/dL (0.40-1.00); Glomerular Filtration Rate 124 (60-); Glucose, Blood 100 mg/dL (70-99); Magnesium, Blood 2.3 mg/dL (1.6-2.4); Phosphorus, Blood 4.2 mg/dL (2.5-4.9); Potassium, Blood 3.7 mmol/L (3.5-5.5); Sodium, Blood 138 mmol/L (136-145); Triglycerides 329 mg/dL (30-140)
--- NOTE | 2022-10-08 06:44 | NUR ---
LATIN AMERICAN STUDIES PROFESSOR SUMMARY ASSUMED CARE OF THE PT AT 1900. CONTINUED PAIN CONTROL Q2 WITH DILAUDID AND ONE DOSE OF TORADOL. PT HAD SOME NAUSEA THIS SHIFT SO GIVEN ONE DOSE OF PHENERGAN. SHE IS ALERT AND ORIENTED, FOLLOWING DIRECTIONS. PAIN WORSENS WITH MOVEMENT. SHE REPORTS SHE IS ABLE TO DRINK SOME ENSURE WITHOUT PAIN. SATURATIONS REMAIN >92% ON 1L BY NC. TACHYCARDIC WITH PAIN BUT IMPROVED TO THE 80S.
--- NOTE | 2022-10-08 07:30 | NUR ---
ASSUMED CARE: PT RESTING QUIETLY AT THIS TIME. 1-2L NC FOR SOB WHEN PAIN GETS OUT OF HAND. CALL LIGHT IN REACH. DENIES FURTHER NEEDS OR CONCERNS AT THIS TIME.
--- NOTE | 2022-10-08 19:44 | NUR ---
SHIFT SUMMARY PATIENT ALERT AND ORIENTED AND INDEPENDENT IN ROOM. TOLERATING CLEAR LIQUIDS IN AM, ADVANCED TO FULL LIQUID FOR LUNCH. TOLERATED WITHOUT NAUSEA. NS RUNNING AT 75/HR. VOIDING WELL. MEDICATED FOR PAIN PRN. FAMILY VISITED PATIENT IN AFTERNOON. REPORT GIVEN TO MAKING MACHINE OPERATOR RN.
--- NOTE | 2022-10-09 06:43 | NUR ---
SHIFT SUMMARY PATIENT ALERT AND ORIENTED X4. VITAL SIGNS STABLE. SPO2 >90% ON ROOM AIR. NO CARDIAC OR RESPIRATORY ISSUES NOTED. PATIENT MEDICATED FOR PAIN, RECEIVED 2 DOSES DILAUDED OVERNIGHT FOR BREAKTHROUGH PAIN. NO ACUTE ISSUES NOTED OVERNIGHT. CALL LIGHT WITHIN REACH.
[2022-10-09] MEDS ORDERED: Acetaminophen325 M1 PO (10:47)
[2022-10-09] MEDS ORDERED: GEMF600 PO (10:47)
[2022-10-09] MEDS ORDERED: MIRALAX17 GM PO (10:48)
--- NOTE | 2022-10-09 11:20 | NUR ---
ASSUMED CARE OF PT AT 0700. NO ACUTE EVENTS. DR STINSON AT BEDSIDE FOR ROUNDING. PT WILL BE DISCHARGED TODAY. 1115- DISCHARGE TEACING COMPLETED INCLUDING MEDICATION LIST, NEW PRESCRIPTIONS, FOLLOW UP APPOINTMENTS AND EDCUATION. PT STATES SHE HAS NO QUESTIONS OR CONCERNS AND VERBALIZES UNDERSTANDING. PG X 2 TO CARLIE AND FRANCES REMOVED, WNL. PT WILL BE DISCHARGED IN THE CARE OF FAMILY. ALL BELONGINGS SENT HOME WITH PT. NO FURTHER DISCHARGE NEEDS IDENTITIED.
== END 2022-10-09 11:48 | disposition home or self-care (01) | DRG 439 ==
LOC: ER 15:59 → PCU 23:23 → ICUW 10-02 15:05 → PCU 10-04 15:18
PROVIDERS: Family Medicine; Internal Medicine; Internal Medicine Critical Care Medicine; Physician Assistant; ADMIT Internal Medicine
PROC: 0T9B70Z Drainage of Bladder with Drainage Device, Via Natural or Artificial Opening (ICD-10-PCS; principal; 2022-10-01)
DX: K85.90 Acute pancreatitis without necrosis or infection, unspecified (principal); B44.81 Allergic bronchopulmonary aspergillosis; E27.40 Unspecified adrenocortical insufficiency; R65.10 Systemic inflammatory response syndrome (SIRS) of non-infectious origin without acute organ dysfunction; E24.9 Cushing's syndrome, unspecified; E87.1 Hypo-osmolality and hyponatremia; E78.1 Pure hyperglyceridemia; J45.909 Unspecified asthma, uncomplicated; F31.9 Bipolar disorder, unspecified; G35 Multiple sclerosis; E78.5 Hyperlipidemia, unspecified; E87.8 Other disorders of electrolyte and fluid balance, not elsewhere classified; E88.09 Other disorders of plasma-protein metabolism, not elsewhere classified; R82.71 Bacteriuria; E87.6 Hypokalemia; E83.51 Hypocalcemia; Z98.890 Other specified postprocedural states; Z79.52 Long term (current) use of systemic steroids; Z88.8 Allergy status to other drugs, medicaments and biological substances; Z88.1 Allergy status to other antibiotic agents; Z88.2 Allergy status to sulfonamides; Z79.51 Long term (current) use of inhaled steroids; Z87.440 Personal history of urinary (tract) infections; Z79.899 Other long term (current) drug therapy; Z98.51 Tubal ligation status; Z87.891 Personal history of nicotine dependence
CPT/HCPCS: 36415; 51703; 74177; 80048; 80053; 80069; 80400; 81001; 81025; 82330; 82533; 82947; 83605; 83615; 83690; 83735; 83970; 84100; 84439; 84443; 84478; 84481; 85014; 85018; 85025; 87040; 87086; 93005; 93010; 94640; 94664; 94760; 94762; 96361; 96365-59; 96375; 96376; 99285-25; A9270; C9113; J0610; J0696; J0780; J0834; J1170; J1650; J1720; J1815; J1885; J2270; J2405; J2550; J3411; J3480; J7030; J7040; J7042; J7050; J7060; J7120; J7121; J7799; Q9967

== ENCOUNTER 2024-08-04 16:57 | Emergency (ER) | payer OTHER ==
[~2024-08-04] VITALS: Ht 160 cm; Wt 87.5 kg
[~2024-08-04 16:57] MED LIST changes: +Acetaminophen325 M1 PO; +GEMF600 PO; +MIRALAX17 GM PO
[2024-08-04 17:45] LABS: BASOPHILS ABSOLUTE AUTO 0.04 K/mm3 (0.00-0.23); BASOPHILS PERCENT AUTO 0 % (0-2); EOSINOPHILS PERCENT AUTO 0 % (0-6); Hematocrit 38.5 % (33.0-51.0); Hemoglobin 13.5 g/dL (11.5-16.0); IMMATURE GRAN ABSOLUTE AUTO 0.11 K/mm3 (0.00-0.10); IMMATURE GRAN PERCENT AUTO 1 % (0-1); LYMPHOCYTES ABSOLUTE AUTO 2.69 K/mm3 (0.84-5.20); LYMPHOCYTES PERCENT AUTO 22 % (21-46); MONOCYTES ABSOLUTE AUTO 1.17 K/mm3 (0.16-1.47); MONOCYTES PERCENT AUTO 10 % (4-13); Mean Corpuscular HGB 28.8 pg (26.0-34.0); Mean Corpuscular HGB Conc 35.1 g/dL (31.5-36.5); Mean Corpuscular Volume 82 fL (80-100); Mean Platelet Volume 9.6 fL (9.1-12.4); NEUTROPHILS ABSOLUTE AUTO 8.23 K/mm3 (1.96-9.15); NEUTROPHILS PERCENT AUTO 67 % (41-73); Platelet Count 347 K/mm3 (150-400); RDW Coefficient Variation 14.4 % (11.7-14.2); RDW Standard Deviation 42.5 fL (35.1-46.3); Red Blood Cell Count 4.69 M/mm3 (3.80-5.20); White Blood Cell Count 12.24 K/mm3 (4.00-11.30)
[2024-08-04 19:17] LABS: Albumin, Blood 3.6 g/dL (3.4-5.0); Albumin/Globulin Ratio 0.9 (0.8-1.8); Bilirubin, Total 0.3 mg/dL (0.1-1.0); Bun/Creatinine Ratio 31.9 (12.0-20.0); Calcium, Blood 8.5 mg/dL (8.5-10.1); Creatinine, Blood 0.57 mg/dL (0.40-1.00); Potassium, Blood 3.9 mmol/L (3.5-5.5); Total Protein, Blood 7.6 g/dL (6.4-8.2)
[2024-08-04] MEDS ORDERED: MIRALAX17 GM PO (20:29)
[2024-08-04] MEDS ORDERED: Acetaminophen 500 MG Tab PO ONE (20:30)
[2024-08-04] MEDS ORDERED: Ondansetron 4 MG TAB PO ONE (20:30)
[2024-08-04] MEDS ORDERED: Ibuprofen 600 MG Tab PO ONE (20:50)
[2024-08-04 21:03] VITALS: BP 119/78
== END 2024-08-04 21:03 | disposition home or self-care (01) ==
LOC: ER 16:57
PROVIDERS: Student in an Organized Health Care Education/Training Program
DX: R10.12 Left upper quadrant pain (principal); R10.13 Epigastric pain; E78.1 Pure hyperglyceridemia; J45.909 Unspecified asthma, uncomplicated; Z88.8 Allergy status to other drugs, medicaments and biological substances; Z88.1 Allergy status to other antibiotic agents; Z88.2 Allergy status to sulfonamides; Z79.899 Other long term (current) drug therapy; Z87.891 Personal history of nicotine dependence
CPT/HCPCS: 74177; 80053; 83690; 85025; 99284-25; A9270; Q9967

== ENCOUNTER 2024-11-20 03:53 | Day surgery (SDC) | payer OTHER ==
[2024-11-20] MEDS ORDERED: UBLITUXIMAB-XIIY 450 MG in NS 232 ML IV SCH (06:00)
[2024-11-20] MEDS ORDERED: MethylPREDNISolone Sod Succ 125 MG Vial IV SCH (06:45)
[2024-11-20] MEDS ORDERED: Acetaminophen 500 MG Tab PO SCH (06:45)
[2024-11-20] MEDS ORDERED: DiphenhydrAMINE HCL 25 MG Cap PO SCH (06:45)
[2024-11-20] MEDS ORDERED: REPATHA SY140 MG/1 M SC (15:12)
[2024-11-20 15:13] VITALS: BP 127/75
[2024-11-20 16:36] VITALS: BP 102/69
[2024-11-20 18:08] VITALS: BP 126/85
--- NOTE | 2024-11-20 18:20 | NUR ---
1 HOUR OBSERVATION POST INFUSION COMPLETE. VSS, PT STATES "I FEEL REALLY TIRED AND OUT OF IT BUT THAT'S JUST WHAT BENADRYL DOES TO ME". PT IS ACCOMPANIED BY HER MOM. EXPLAINED POSSIBLE REACTION SYMPTOMS TO CALL MD AND EMERGENCY REACTION SYMPTOMS THAT WOULD REQUIRE AN EMERGENCY RESPONSE. PT AND MOM EXPRESS UNDERSTANDING.
== END 2024-11-20 18:19 | disposition home or self-care (01) ==
LOC: ATC 03:53
DX: G35 Multiple sclerosis (principal); Z79.899 Other long term (current) drug therapy; Z88.8 Allergy status to other drugs, medicaments and biological substances; Z88.2 Allergy status to sulfonamides; Z88.1 Allergy status to other antibiotic agents
CPT/HCPCS: 96365; 96375; A9270; J2329; J2919; J7050

== ENCOUNTER → 2024-12-09 | Outpatient (CLI) | payer OTHER ==
[~2024-12-09] MED LIST changes: +REPATHA SY140 MG/1 M SC
== END ==
LOC: LAB SHORT 06:55 → LAB 06:55
DX: J45.51 Severe persistent asthma with (acute) exacerbation (principal)
CPT/HCPCS: 87070

== ENCOUNTER 2025-02-10 18:20 | Emergency (ER) | payer OTHER ==
[~2025-02-10] VITALS: Ht 160 cm; Wt 92.1 kg
[2025-02-10 18:42] VITALS: BP 139/92
[2025-02-10 18:53] LABS: BASOPHILS ABSOLUTE AUTO 0.02 K/mm3 (0.00-0.23); BASOPHILS PERCENT AUTO 0 % (0-2); EOSINOPHILS ABSOLUTE AUTO 0.00 K/mm3 (0.00-0.68); EOSINOPHILS PERCENT AUTO 0 % (0-6); Hematocrit 38.5 % (33.0-51.0); Hemoglobin 13.1 g/dL (11.5-16.0); IMMATURE GRAN ABSOLUTE AUTO 0.12 K/mm3 (0.00-0.10); IMMATURE GRAN PERCENT AUTO 1 % (0-1); LYMPHOCYTES ABSOLUTE AUTO 2.58 K/mm3 (0.84-5.20); LYMPHOCYTES PERCENT AUTO 24 % (21-46); MONOCYTES ABSOLUTE AUTO 1.12 K/mm3 (0.16-1.47); MONOCYTES PERCENT AUTO 10 % (4-13); Mean Corpuscular HGB Conc 34.0 g/dL (31.5-36.5); Mean Corpuscular Volume 81 fL (80-100); NEUTROPHILS ABSOLUTE AUTO 6.94 K/mm3 (1.96-9.15); NEUTROPHILS PERCENT AUTO 64 % (41-73); NRBC ABSOLUTE 0.00 K/mm3 (0.00-0.02); NRBC Auto 0.0 /100 WBC (0.0-0.2); Platelet Count 331 K/mm3 (150-400); RDW Coefficient Variation 14.7 % (11.7-14.2); RDW Standard Deviation 42.9 fL (35.1-46.3)
[2025-02-10 19:36] LABS: Alanine Aminotransfer (ALT/SGP 58.0 U/L (12-78); Albumin, Blood 3.7 g/dL (3.4-5.0); Anion Gap 11.0 mmol/L (3-11); Aspartate Aminotrans (AST/SGOT 27.0 U/L (12-37); Bilirubin, Total 0.6 mg/dL (0.1-1.0); Blood Urea Nitrogen 11.0 mg/dL (8-24); CO2, Blood 19.0 mmol/L (21-32); Calcium, Blood 8.2 mg/dL (8.5-10.1); Chloride, Blood 105.0 mmol/L (98-108); Creatinine, Blood 0.58 mg/dL (0.40-1.00); Glucose, Blood 172.0 mg/dL (70-99); Potassium, Blood 3.5 mmol/L (3.5-5.5); Sodium, Blood 131.0 mmol/L (136-145)
[2025-02-10 19:37] LABS: Albumin/Globulin Ratio 0.9 (0.8-1.8); Globulin, Blood 4.0 g/dL (2.2-4.0)
[2025-02-10 19:38] LABS: Total Protein, Blood 7.7 g/dL (6.4-8.2)
[2025-02-10] MEDS ORDERED: NS 1,000 ML IV SCH (21:00)
[2025-02-10] MEDS ORDERED: Lidocaine 2% Viscous Soln 15 ML UDC PO ONE (21:00)
[2025-02-10] MEDS ORDERED: Ketorolac Tromethamine 15mg Vial IV ONE (21:05)
== END 2025-02-10 22:13 | disposition home or self-care (01) ==
LOC: ER 18:20
PROVIDERS: Student in an Organized Health Care Education/Training Program
DX: R07.9 Chest pain, unspecified (principal); E86.0 Dehydration; R73.9 Hyperglycemia, unspecified; J45.909 Unspecified asthma, uncomplicated; G35 Multiple sclerosis; Z87.891 Personal history of nicotine dependence; Z88.1 Allergy status to other antibiotic agents; Z88.2 Allergy status to sulfonamides; Z88.8 Allergy status to other drugs, medicaments and biological substances; Z79.899 Other long term (current) drug therapy
CPT/HCPCS: 71046; 80053; 83690; 84484; 85025; 93005; 93010; 96374; 99285-25; A9270; J1885; J7030

== ENCOUNTER 2025-05-14 00:50 | Day surgery (SDC) | payer OTHER ==
[2025-05-14] MEDS ORDERED: UBLITUXIMAB-XIIY 450 MG in NS 232 ML IV SCH (08:10)
[2025-05-14 15:05] VITALS: BP 136/68
[2025-05-14] MEDS ORDERED: EZET10 PO (15:08)
[2025-05-14] MEDS ORDERED: TRELEGY ELLIPT1 EAC1 INH (15:09)
[2025-05-14] MEDS ORDERED: CELEBREX200 MG PO (15:09)
[2025-05-14] MEDS ORDERED: FASENRA PE30 MG/1 ML SC (15:16)
[2025-05-14 16:23] VITALS: BP 115/57
== END 2025-05-14 16:56 | disposition home or self-care (01) ==
LOC: ATC 00:50
DX: G35.D Multiple sclerosis, unspecified (principal); Z87.891 Personal history of nicotine dependence; Z88.2 Allergy status to sulfonamides; Z88.8 Allergy status to other drugs, medicaments and biological substances
CPT/HCPCS: 96365; 96375; A9270; J2329; J2919; J7050

== ENCOUNTER → 2025-07-05 | Outpatient (CLI) | payer OTHER ==
[~2025-07-05] MED LIST changes: +CELEBREX200 MG PO; +EZET10 PO; +FASENRA PE30 MG/1 ML SC; +TRELEGY ELLIPT1 EAC1 INH
== END | disposition home or self-care (01) ==
LOC: LAB SHORT 18:40 → LAB 18:40
DX: N76.4 Abscess of vulva (principal)
CPT/HCPCS: 87070; 87075; 87205